=== PATIENT | male | born 1965 | race Caucasian/White ===

== ENCOUNTER → 2017-06-30 | Outpatient (CLI) | payer OTHER ==
--- NOTE | 2017-06-30 10:14 | CT ---
EXAMINATION TYPE: CT chest w con DATE OF EXAM: 06/30/2017 COMPARISON: NONE HISTORY: sarcoidosis CT DLP: 741 mGycm Automated exposure control for dose reduction was used. CONTRAST: CT scan of the chest is performed with IV Contrast, patient injected with 100 mL of Omnipaque 300. FINDINGS: LUNGS: 3 mm on nonspecific pulmonary nodule right upper lobe. Additional 3 mm pulmonary nodule left u pper lobe. No interstitial changes seen. No evidence of focal consolidation or mass. There is no pleu ral effusion or pneumothorax seen. The tracheobronchial tree is patent. MEDIASTINUM: There are no greater than 1 cm hilar or mediastinal lymph nodes. No pericardial effusi on is seen. Thoracic aorta is of normal caliber. The heart is not enlarged. UPPER ABDOMEN: 2 simple cysts are seen within the liver. OTHER: No additional significant abnormality is seen. IMPRESSION: 1. No CT evidence to suggest sarcoidosis at this time. Small subcentimeter lymph nodes within the med iastinum and right hilum. 2. Nonspecific pulmonary nodularity. Consider follow-up study in 6 months.
== END | disposition home or self-care (01) ==
LOC: RADCTMAIN 09:20
PROVIDERS: ATTEND Internal Medicine Critical Care Medicine
DX: R91.8 Other nonspecific abnormal finding of lung field (principal); D86.9 Sarcoidosis, unspecified; R06.02 Shortness of breath
CPT/HCPCS: 85652; 82310; 82164; 71260; Q9967

== ENCOUNTER 2017-11-01 00:54 | Inpatient (IN) | payer OTHER ==
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
[2017-11-01 02:15] LABS: Amphetamine Screen,Urine Not Detected (NotDetected); Barbiturate Screen,Urine Not Detected (NotDetected); Benzodiazepines Screen,Urine Not Detected (NotDetected); Cocaine Screen,Urine Not Detected (NotDetected); Methadone Screen, Urine Not Detected (NotDetected); Opiate Screen,Urine Not Detected (NotDetected); Oxycodone Screen, Urine Detected (NotDetected); Phencyclidine Screen,Urine Not Detected (NotDetected); Tricyclic Antidepressant,Urine Not Detected (NotDetected); Urn Cannabinoid Scrn Not Detected (NotDetected)
[2017-11-01] MEDS ORDERED: MAG HYDROX/AL HYDROX/SIMETH 30 ML CUP PO PRN (15:51)
[2017-11-01] MEDS ORDERED: MAGNESIUM HYDROXIDE 2,400 MG/10 ML CUP PO PRN (15:51)
[2017-11-01] MEDS ORDERED: ZIPRASIDONE 20 MG VIAL IM PRN (15:51)
[2017-11-01] MEDS ORDERED: ALBUTEROL INHALER 60 PUFF/8 GM INHALER INHALATION PRN (15:57)
[2017-11-01] MEDS ORDERED: LORazepam 2 MG/ML INJ IM PRN (16:02)
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
[2017-11-01] MEDS: SYMBICORT 160-4.5 MCG INHALER INHALATION SCH (21:03)
[2017-11-01] MEDS: PRAZOSIN 1 MG CAP PO SCH (22:22)
[2017-11-01] MEDS: OLANZapine 2.5 MG TAB PO SCH (22:22)
--- NOTE | 2017-11-02 00:08 | P.MDCNMH ---
History of Present Illness H&P Date: 11/01/17 Chief Complaint: medical management 51 y old male with history of PTSD, patient presented after he barricaded himself at home police was called and he was brought to the hospital due to acute erratic behavior. Patient denies any history of mental health illness except for PTSD he is a from a [place] war. He otherwise denies any physical complaints at this point or any medical problems. He reports history of osteoarthritis for which she get bilateral total knee arthroplasty. He recently had a left total knee arthroplasty around a week ago. Currently reports that his pain is well controlled. He otherwise denies any suicidal or homicidal ideation . Review of Systems Constitutional: Patient denies fever, denies chills, denies night sweating, denies significant weight changes Eyes: Patient denies visual changes, denies eye pain ENT: Patient denies ear pain, denies rhinorrhea, denies sore throat Cardiovascular: Patient denies chest pain, denies exertional dyspnea, denies peripheral leg edema, denies orthopnea, denies paroxysmal nocturnal dyspnea Respiratory:Patient denies cough, denies wheezing, denies shortness of breath Gastrointestinal: Patient denies diarrhea, denies constipation, denies nausea , denies vomiting, denies abdominal pain Genitourinary: Patient denies dysuria, denies hematuria, denies changes in urinary habits, denies genital lesions Musculoskeletal: Patient denies muscle pain, recently had left knee arthroplasty pain overall is well controlled Psychiatric: Patient patient admits to anxiety and PTSD, denies suicidal ideation Endocrine: Patient denies heat intolerance, denies cold intolerance, denies excessive thirst, denies polyuria Neurological: Patient denies focal neurologic deficits, denies weakness, denies numbness, denies tingling Hem/Lymphatic: Patient denies bleeding tendency, denies bruising, denies swollen lymph glands Allergic/Immun: Patient denies recent allergic reactions Skin: Patient denies rashes, denies pruritis, denies ulcers Past Medical History Past Medical History: Osteoarthritis (OA) History of Any Multi-Drug Resistant Organisms: None Reported Past Surgical History: Appendectomy, Joint Replacement Additional Past Surgical History / Comment(s): Vasectomy Past Psychological History: PTSD Smoking Status: Never smoker Past Alcohol Use History: None Reported Past Drug Use History: None Reported - Past Family History Family Additional Family Medical History / Comment(s): Lung cancer in grandfather Medications and Allergies Home Medications Medication Instructions Recorded Confirmed Type Albuterol Inhaler [Ventolin Hfa 1 puff INHALATION RT-Q2H PRN 11/01/17 11/01/17 History Inhaler] Allopurinol [Zyloprim] 150 mg PO DAILY 11/01/17 11/01/17 History Budesonide-Formot 160-4.5 Mcg 2 puff INHALATION RT-BID 11/01/17 11/01/17 History [Symbicort 160-4.5 Mcg Inhaler] FLUoxetine HCL [PROzac] 20 mg PO DAILY 11/01/17 11/01/17 History Prazosin HCl 2 mg PO HS 11/01/17 11/01/17 History oxyCODONE-APAP 5-325MG [Percocet 1 tab PO Q4H PRN 11/01/17 11/01/17 History 5-325 mg] Allergies Allergy/AdvReac Type Severity Reaction Status Date / Time No Known Allergies Allergy Verified 11/01/17 01:08 Physical Exam Vitals: Vital Signs Temp Pulse Pulse Resp BP BP Pulse Ox 11/01/17 22:26 110 H 20 116/75 11/01/17 07:14 97.4 F L 11/01/17 06:46 80 16 116/72 11/01/17 06:43 97.1 F L 89 18 106/61 96 11/01/17 01:00 97 F L 108 H 18 131/78 96 Constitutional: No acute distress, conversant, pleasant Eyes: Anicteric sclerae, moist conjunctiva, no lid-lag Pupils equal round reactive to light ENMT: NC/AT Oropharynx clear, no erythema, exudates Neck: Supple, FROM, no masses, or JVD No carotid bruits No thyromegaly Lungs: Clear to auscultation Clear to percussion Normal respiratory effort, no accessory muscle use Cardiovascular: Heart regular in rate and rhythm, No murmurs, gallops, or rubs No peripheral edema Abdominal: Soft Nontender, no guarding, rebound or rigidity Abdomen moving with respiration Normoactive bowel sounds No hepatomegaly, No splenomegaly No palpable mass No abdominal wall hernia noted Skin: Normal temperature, tone, texture, turgor No induration No subcutaneous nodules No rash, lesions No ulcers Extremities: Left knee with surgical wound christofer are intact no drainage swelling induration or erythema. There is proximal bruising and ecchymosis over the medial left thigh, intact range of motion of bilateral knees No clubbing Pedal pulses intact and symmetrical Radial pulses intact and symmetrical No calf tenderness Psychiatric: Alert and oriented to person, place and time Slightly pressured speech, paranoid affect poor judgment Neuro Muscles Strength 5/5 in all 4 extremities Sensation to light touch grossly present throughout No focal sensory deficits Lymphatics: no palpable cervical or supraclavicular , or inguinal lymph nodes Cranial Nerve Examination - Cranial Nerves Cranial Nerve II- Optic: Intact Cranial Nerve III- Oculomotor: Intact Cranial Nerve IV- Trochlear: Intact Cranial Nerve V- Trigeminal: Intact Cranial Nerve - Abducens: Intact Cranial Nerve VII- Facial: Intact Cranial Nerve VIII- Auditory: Intact Cranial Nerve IX- Glossopharyngeal: Intact Cranial Nerve X- Vagus: Intact Cranial Nerve XI- Accessory: Intact Cranial Nerve XII- Hypoglossal: Intact Results Labs: Abnormal Lab Results - Last 24 Hours (Table) 11/01/17 Range/Units 01:50 Ur Oxycodone Screen Detected H (NotDetected) Assessment and Plan (1) Psychosis Narrative/Plan: Management per psych Current Visit: Yes Status: Acute Code(s): F29 - UNSP PSYCHOSIS NOT DUE TO A SUBSTANCE OR KNOWN PHYSIOL COND SNOMED Code(s): 00175713 Plan: #Left total knee arthroplasty Pain control Surgical wound is intact with christofer in place Patient not on blood thinners #PTSD Management per psych DVT prophylaxis patient is ambulatory Thank you for allowing us to participate in the care of this patient. We will follow peripherally. Do not hesitate to contact us with questions. Someone can be reached from the [facility] hospitalist group at all hours of the day at [phone].
[2017-11-02 00:27] LABS: Appearance,Urine Clear (Clear); Bilirubin,Urine Negative (Negative); Blood,Urine Negative (Negative); Color,Urine Light Yellow; Glucose,Urine (UA) Negative (Negative); Ketones,Urine Trace (Negative); Leukocyte Esterase,Urine Negative (Negative); Nitrite,Urine Negative (Negative); Protein,Urine Negative (Negative); Specific Gravity,Urine 1.013 (1.001-1.035); Urobilinogen,Urine <2.0 mg/dL (<2.0)
[2017-11-02] MEDS: ACETAMINOPHEN TAB 325 MG TAB PO PRN (01:05)
[2017-11-02] MEDS ORDERED: FLUoxetine HCL 20 MG CAP PO SCH (09:00)
[2017-11-02] MEDS: ALLOPURINOL 300 MG TAB PO SCH (09:12)
[2017-11-02 09:28] LABS: Basophils % (A) 0 %; Eosinophils # (A) 0.1 k/uL (0-0.7); Eosinophils % (A) 1 %; HCT 32.6 % (39.0-53.0); HGB 10.6 gm/dL (13.0-17.5); Lymphocytes % (A) 17 %; MCH 31.5 pg (25.0-35.0); MCHC 32.5 g/dL (31.0-37.0); MCV 96.7 fL (80.0-100.0); Mean Platelet Volume 6.4; Monocytes # (A) 0.4 k/uL (0-1.0); Monocytes % (A) 6 %; Neutrophils # (A) 4.5 k/uL (1.3-7.7); Neutrophils % (A) 74 %; Platelet Count 323 k/uL (150-450); RBC 3.37 m/uL (4.30-5.90); RDW 14.2 % (11.5-15.5); WBC 6.1 k/uL (3.8-10.6)
[2017-11-02] MEDS: SYMBICORT 160-4.5 MCG INHALER INHALATION SCH ×2 (10:00→20:46)
[2017-11-02 10:14] LABS: Albumin 3.5 g/dL (3.5-5.0); Calcium 8.8 mg/dL (8.4-10.2); Potassium 4.3 mmol/L (3.5-5.1); Total Bilirubin 1.4 mg/dL (0.2-1.3); Total Protein 6.3 g/dL (6.3-8.2)
--- NOTE | 2017-11-02 11:55 | P.PN ---
Subjective Progress Note Date: 11/02/17 Principal diagnosis: depression Patient is a 51-year-old male for history of posttraumatic stress disorder and osteoarthritis who is seen in the mental health unit for depression. He underwent an elective left total knee arthroplasty approximately one week ago and I was asked to evaluate him regarding his bruising. Patient seen and examined at bedside. She reports extensive bruising of his left leg. He permits that his pain is worse with movement and he does feel a tightness in his calf. He denies any swelling. He is unsure what he was taking after discharge from the hospital. He denies any chest pain, shortness of breath, lightheadedness, and dizziness. Per nursing has not been getting out of bed and he has not been eating or drinking well. I contacted his pharmacy [facility] who reports that he recently picked up on October 25 prescriptions for Flomax 0.4 mg daily, meloxicam 7.5 mg twice daily, aspirin 81 mg twice daily, and gabapentin 30 mg twice daily. He also received a 1 time dose of Coumadin 10 mg and a Medrol Dosepak earlier this month. Objective - Vital Signs Vital signs: Vital Signs Temp 98.0 F 11/02/17 01:46 Pulse 85 11/02/17 01:46 Resp 16 11/02/17 01:46 BP 134/76 11/02/17 01:46 Pulse Ox 96 11/01/17 06:43 Intake & Output 11/01/17 11/02/17 11/02/17 18:59 06:59 18:59 Output Total 144 Balance -144 Output: Post Void Residual 144 - Exam General: non toxic, no distress, appears at stated age Derm: warm, dry, diffuse ecchymosis on left leg from proximal thigh down to ankle on the medial side, midline left knee incision clean, dry, intact with christofer present Head: atraumatic, normocephalic, symmetric Eyes: EOMI, no lid lag, anicteric sclera Ext: no gross muscle atrophy, no edema, no contractures, negative notices and Homans on the left Neuro: CN II-XI grossly intact, no focal neuro deficits Psych: Alert, oriented, flat affect - Labs CBC & Chem 7: 11/02/17 09:15 11/02/17 09:15 Labs: Abnormal Lab Results - Last 24 Hours (Table) 11/02/17 11/02/17 11/02/17 Range/Units 00:09 09:15 09:15 RBC 3.37 L (4.30-5.90) m/uL Hgb 10.6 L (13.0-17.5) gm/dL Hct 32.6 L (39.0-53.0) % Chloride 110 H (98-107) mmol/L Carbon Dioxide 18 L (22-30) mmol/L BUN 27 H (9-20) mg/dL Creatinine 1.57 H (0.66-1.25) mg/dL Total Bilirubin 1.4 H (0.2-1.3) mg/dL Triglycerides 164 H (<150) mg/dL Cholesterol 241 H (<200) mg/dL LDL Cholesterol, Calc 155 H (0-99) mg/dL TSH 0.181 L (0.465-4.680) mIU/L Urine Ketones Trace H (Negative) Assessment and Plan Assessment: REGINA - likely multifactorial - PVR 144, resume flomax - hold mobic - repeat labs in AM - Encourage oral fluid intake Anemia - anticipate due to acute blood loss - Check FE studies - repeat CBC in AM Ecchymosis left leg - check venous doppler - due tos rugery - start Lovenox if no DVT for post of DVT prophylaxis Dyslipidemia - no risk factors could try dietary modification vs statin - outpatient f/u needed Depression - your psych management Thank you for allowing us to participate in the care of this patient. Will plan on following up on labs. Do not hesitate to contact us with questions. Someone can be reached from the [facility] hospitalist group at all hours of the day at [phone].
[2017-11-02 12:16] LABS: Prothrombin Time 10.1 sec (9.0-12.0)
[2017-11-02] MEDS: TAMSULOSIN 0.4 MG CAP.ER.24H PO SCH (12:27)
--- NOTE | 2017-11-02 15:49 | US ---
EXAMINATION TYPE: US venous doppler duplex LE LT DATE OF EXAM: 11/02/2017 1:09 PM COMPARISON: NONE CLINICAL HISTORY: pain. Knee surgery 10/24/2017. No blood thinners. Pain. Bruising. SIDE PERFORMED: Left TECHNIQUE: The lower extremity deep venous system is examined utilizing real time linear array sonog preeti with graded compression, doppler sonography and color-flow sonography. VESSELS IMAGED: External Iliac Vein (EIV) Common Femoral Vein Deep Femoral Vein Greater Saphenous Vein * Femoral Vein Popliteal Vein Small Saphenous Vein * Proximal Calf Veins (* superficial vessels) Left Leg: Appears negative for DVT IMPRESSION: Grayscale, color doppler, spectral doppler imaging performed of the deep veins of the lo wer extremities. There is normal flow, compressibility, vascular waveforms. No evident deep venous thrombosis at or above the left knee.
--- NOTE | 2017-11-02 15:57 | P.PN ---
Progress Note - Text Progress Note Date: 11/02/17 Interval History: Patient is a 51-year-old male who was admitted after barricading himself in his home and was threatening suicide. I spoke with the patient today and he continues to remain in his room, he has not been eating and states that he does not like to be around people. Patient continued to not be able to discuss with me what occurred that precipitated the event with the police. Patient stated that he was not feeling suicidal at the time and denies current suicidal thoughts. Patient signed a release of information for me to speak with his partner Macie and I contacted Macie. She stated that the patient was doing well until the day of admission and it helped her son with his homework, went in to speak to the patient's 14-year-old daughter and he came out crying. The patient's daughter came out and stated that the patient had been sending a group techs to all of his children which was rambling and had a paranoid quality to it that upset his children. It stated that he needed to do what he was being told to do to prevent his kids from being hurt. When she confronted him with this he said that he needed to post on Facebook that he was going to kill himself or they would kill the kids and he made references to the Taliban. Patient became increasingly agitated and began yelling and she removed the children from the home. She states when she returned to the home he had become increasingly agitated and did not recognize her and wondered how she got in the home. She states that this time he had a gun and did, after her and she left the home and called the police. When I confronted the patient with this information he stated that he has had this other voice in his head that he has been able to control since he returned from [facility] until the last several years. He states that this is a voice that gives him bad thoughts. Patient states that the voice suddenly became uncontrollable and it was telling him all of this information. Patient states that he has never discussed this with his partner. Patient's partner confirm that the patient was on Prozac 80 mg and has been for the last month but she noticed that he was talking in his sleep more and was more restless. She confirm the following surgery he was on gabapentin, laxative Flomax, meloxicam had completed a Medrol Dosepak and was also taking Vistaril 25 mg 4 times a day. He was using oxycodone and that prescription was 1-2 tablets every 4 hours to a max of 12 a day. The patient reported to me that his pain was so severe he was using up to 12 a day on occasion. Patient states that the patient was calling his mother daily complaining of pain but when she was home she did not notice that he was in as much pain as he reported. She did notice that the patient had not been getting out of bed at home and had not been eating. Mental Status: Appearance/Attitude: Patient was again seen in his hospital room as he refuses to come out of the room, he made good eye contact and was cooperative Behavior: Patient did not exhibit any psychomotor agitation or retardation. Speech/Language: Patient's speech was spontaneous and of normal volume and rhythm and he was coherent. Thought Process: Patient was goal-directed and there was no guns of loose associations or flight of ideas. Thought Content: Patient denied auditory or visual hallucinations and did discuss with me that since his return from [place] he has had flashbacks and avoids situations with a lot of people because certain noises will cause him to have flashbacks. He also stated that he has had difficulty controlling this "voice" which causes him to feel angry, and have bad thoughts. He states that this became difficult for him to control and he sought counseling at the [place] and saw a psychiatrist there. He states that after the surgery once he got home he reports that this voice took over and this was what was telling him that he needed to kill himself to protect his children. Suicidal/Homicidal Ideation: Patient denies any current suicidal or homicidal ideation and states that he would never hurt himself or anyone else. Sensorium/Cognition: Patient is alert and oriented to person, place, time and his memory both recent and remote are grossly intact. Mood/Affect: Patient's mood remains depressed and guarded and his affect is appropriate. Insight/Judgment: Patient's insight and judgment are fair. Assessment: Patient has a history of posttraumatic stress disorder with flashbacks, nightmares and and depression. Patient now describes a voice that causes him to have bad thoughts and he states this is what caused him to think about suicide and text this to his children. Patient however was also post surgery and was on opiate pain medication combined with Prozac combined with Vistaril and appears to become increasingly agitated and confused on the night of admission. Patient reports that his sleep has improved slightly with prazosin which decrease the nightmares. He states that the flashbacks are better but because he avoids many situations. States that he takes the children to school and returns home and avoids being out in crowds. Patient was unable to report whether the Prozac was beneficial at the dose of 80 mg, his partner reported that his sleep was more restless and he was talking more in his sleep. Plan: We will discontinue the Prozac as he is at the maximum dose and it does not appear to have benefited him. We will increase his Zyprexa to 5 mg at bedtime, I suspect the patient has PTSD with flashbacks, depression and nightmares and due to surgery, medications became delirious at home on the night of admission. Patient will not be receiving any opioid pain medication. Patient will continue on prazosin 2 mg at bedtime and we'll consider the addition of an antidepressant. Patient continues to be encouraged to eat, drink fluids and to ambulate in his room or the falk.
[2017-11-02 20:04] LABS: Hemoglobin A1C 4.9 % (4.0-6.0)
[2017-11-02] MEDS: PRAZOSIN 1 MG CAP PO SCH (21:12)
[2017-11-02] MEDS: OLANZapine 2.5 MG TAB PO SCH (21:12)
[2017-11-03] MEDS: ALLOPURINOL 300 MG TAB PO SCH (08:58)
[2017-11-03] MEDS: TAMSULOSIN 0.4 MG CAP.ER.24H PO SCH (08:58)
[2017-11-03] MEDS: ENOXAPARIN 30 MG/0.3 ML SYRINGE SQ SCH ×2 (08:59→20:26)
[2017-11-03] MEDS: ACETAMINOPHEN TAB 325 MG TAB PO PRN ×3 (09:00→20:31)
[2017-11-03 09:18] LABS: Anion Gap 13 mmol/L; Blood Urea Nitrogen 27 mg/dL (9-20); Calcium 9.6 mg/dL (8.4-10.2); Carbon Dioxide 18 mmol/L (22-30); Chloride 109 mmol/L (98-107); Glucose 95 mg/dL (74-99); Potassium 4.7 mmol/L (3.5-5.1); Sodium 140 mmol/L (137-145)
[2017-11-03 09:34] LABS: T4, Free (Free Thyroxine) 1.13 ng/dL (0.78-2.19)
[2017-11-03] MEDS: SYMBICORT 160-4.5 MCG INHALER INHALATION SCH ×2 (09:37→21:17)
--- NOTE | 2017-11-03 12:20 | P.PN ---
Progress Note - Text Progress Note Date: 11/03/17 Interval History: Patient is a 51-year-old male who was seen today in his room as he states that he is uncomfortable around people. Patient and I again discussed what had been going on prior to his admission the patient was able to report to me that since [facility] [employer] [facility] that he has been hearing voices that occur to telling him to do bad things, such as hurt himself. He states that he was able to ignore these voices initially. He was also having flashbacks as well as nightmares and 2 years ago began seeing a psychiatrist at the [place], he said he never informed her of his auditory hallucinations. He states that he was placed on Prozac and it did help with the flashbacks as well as the prazosin for his nightmares but the voices continued and he was able to ignore them. Patient states he had knee surgery in April 2017 and after that surgery began using a pint of alcohol a day to stop the voices as they had increased and he was no longer able to ignore them. He states this was what he had been doing until his recent surgery when he discontinued his alcohol and states that when he went home she is having a lot of pain, the voices did return and were telling him that if he didn't kill himself that they would kill his children. He is unaware of what his partner had informed me yesterday of not recognizing him. He denied that he was feeling confused, was having visual hallucinations at home and states that the voices were increasing in intensity since his discharge after surgery. Patient reported that he slept fairly well last evening and reports that the voices are still present but much less intense. Patient states that he ate lunch and dinner yesterday and typically does not eat breakfast. Patient states that he is not leaving his room because being around people causes flashbacks to return. Patient states that his partner did visit last evening but he is still embarrassed and concerned that his family will be ashamed of him and concerns that he believes his partner. Mental Status: Appearance/Attitude: Patient was seen in his room where he is lying in his bed, he makes intermittent eye contact and was cooperative. Behavior: Patient does not display any psychomotor agitation or retardation. Speech/Language: Patient's speech was spontaneous and of normal volume and rhythm and he was coherent. Thought Process: Patient was goal-directed, there is no loose associations or flight of ideas. Thought Content: Patient denied any visual hallucinations but stated he has had and continues to have auditory hallucinations that tell him bad things, recently telling him to kill himself or they would kill his children. Patient states that these have been increasing in intensity since his surgery in April 2017. Patient states he was using alcohol to treat these in the past. Patient reports that he slept well last evening continues to have an occasional nightmare that are not as intense as they were prior to starting medication. Patient reported no current flashbacks. Suicidal/Homicidal Ideation: Patient denies any current suicidal or homicidal ideation. Sensorium/Cognition: Patient is alert and oriented to person, place, time and his recent and remote memory are grossly intact. Mood/Affect: Patient's mood remains guarded and his affect is appropriate Insight/Judgment: Patient's insight and judgment are fair. Assessment: Patient was able to give a more further incomplete history about what has been occurring, he has now reported auditory hallucinations that due to tell him to do things and he states that he's been able to ignore them until his surgery in April 2017. Patient began using alcohol on a daily basis to stop the voices and stopped right before his recent surgery on his other knee. Patient states that he had never informed his psychiatrist at the [place] about this. He states that the flashbacks and nightmares were improved with the Prozac and the voices continued but were controllable. Patient reports that he slept well last evening and no side effects from the Zyprexa but the voices are still present although less intense and frequent. Patient has remained in his room due to stating that he does not like to be around a lot of other people and he reports that he did eat lunch and dinner yesterday and has been drinking fluids. Plan: Patient will continue on prazosin 2 mg at bedtime to target his nightmares and his Zyprexa will be increased to 5 mg nightly to target his psychotic symptoms. His Prozac continues to remain on hold at this time. Patient is continued to be encouraged to eat, drink plenty of fluids and get up and ambulate. Patient is being followed by the medical equipment repair technician. Patient's vital signs are stable.
--- NOTE | 2017-11-03 15:13 | P.PN ---
Subjective Progress Note Date: 11/03/17 (delayed charting seen at 1200) Principal diagnosis: depression Patient is a 51-year-old male for history of posttraumatic stress disorder and osteoarthritis who is seen in the mental health unit for depression. S/P TKA and found to have REGINA likely from dehydration. Patient seen and examined at bedside. His leg is feeling better than yesterday. Still feeling a little stiff. He states he has increased his water consumption and is feeling somewhat better than yesterday. He denies any chest pain or shortness of breath. We discussed that his kidney function is looking better than yesterday. We also discussed his cholesterol levels at length. He states he was fasting when blood work was drawn yesterday. He would be amenable statin therapy. We discussed risks versus benefits of therapy. Patient will be started on Lipitor. Objective - Vital Signs Vital signs: Vital Signs Temp 98.0 F 11/03/17 05:03 Pulse 82 11/03/17 05:03 Resp 16 11/03/17 05:03 BP 136/89 11/03/17 05:03 Pulse Ox 96 11/01/17 06:43 Intake & Output 11/02/17 11/03/17 11/03/17 18:59 06:59 18:59 Output Total 144 Balance -144 Output: Post Void Residual 144 - Exam General: non toxic, no distress, appears at stated age Derm: warm, dry, diffuse ecchymosis on left leg from proximal thigh down to ankle on the medial side, midline left knee incision clean, dry, intact with christofer present Head: atraumatic, normocephalic, symmetric Eyes: EOMI, no lid lag, anicteric sclera Lungs: Clear to auscultation bilaterally, no rhonchi/rales/wheeze, no accessory muscle use Cardiovascular: S1-S2 without murmurs/rubs/gallops, + posterior tibial pulses bilaterally, Ext: no gross muscle atrophy, no edema, no contractures Neuro: CN II-XI grossly intact, no focal neuro deficits Psych: Alert, oriented, flat affect - Labs CBC & Chem 7: 11/02/17 09:15 11/03/17 08:57 Labs: Abnormal Lab Results - Last 24 Hours (Table) 11/03/17 Range/Units 08:57 Chloride 109 H (98-107) mmol/L Carbon Dioxide 18 L (22-30) mmol/L BUN 27 H (9-20) mg/dL Creatinine 1.31 H (0.66-1.25) mg/dL Assessment and Plan Assessment: REGINA - likely multifactorial - flomax - hold mobic - repeat labs 11/05 - Encourage oral fluid intake Anemia - anticipate due to acute blood loss - repeat CBC 11/05 with FE studies Ecchymosis left leg - check venous doppler negative - due to surgery Dyslipidemia - lipitor - outpatient f/u needed Depression - your psych management Thank you for allowing us to participate in the care of this patient. Will plan on following up on labs. Do not hesitate to contact us with questions. Someone can be reached from the [facility] hospitalist group at all hours of the day at [phone].
[2017-11-03] MEDS: PRAZOSIN 1 MG CAP PO SCH (20:26)
[2017-11-03] MEDS: ATORVASTATIN 20 MG TAB PO SCH (20:26)
[2017-11-03] MEDS: OLANZapine 5 MG TAB PO SCH (20:27)
[2017-11-04] MEDS: TAMSULOSIN 0.4 MG CAP.ER.24H PO SCH (08:20)
[2017-11-04] MEDS: ENOXAPARIN 30 MG/0.3 ML SYRINGE SQ SCH ×2 (08:20→20:04)
[2017-11-04] MEDS: ALLOPURINOL 300 MG TAB PO SCH (08:21)
[2017-11-04] MEDS: ACETAMINOPHEN TAB 325 MG TAB PO PRN ×4 (08:21→23:57)
[2017-11-04] MEDS: SYMBICORT 160-4.5 MCG INHALER INHALATION SCH ×2 (09:53→20:36)
--- NOTE | 2017-11-04 12:03 | P.PN ---
Progress Note - Text Progress Note Date: 11/04/17 Interval History: Patient is a 51-year-old male who was seen today and he reported that he is sleeping well without any flashbacks or nightmares. Patient states he is not having flashbacks during the day. He reports that the male voice he has been hearing is not currently present however he continues to have auditory hallucinations but cannot describe them. Patient states that he is eating lunch and dinner and is drinking fluids. He reports that he is not having any suicidal or homicidal ideation. When discussing his ability to return to live with his partner he stated that he feels that that is a possibility but still expresses concerns regarding her ex- and his wish to obtain custody of his son. Patient states that he is up and walking using a wheelchair for support and states that his pain level is at about a 5. Patient reported no complaints of side effects from the medication. Mental Status: Appearance/Attitude: Patient was lying in a hospital bed, made good eye contact and was cooperative. Behavior: Patient did not display any psychomotor agitation or retardation. Speech/Language: Patient speech was spontaneous and he was coherent in his speech is of normal volume and rhythm Thought Process: Patient was goal-directed there is no evidence of loose associations or flight of ideas. Thought Content: Patient reported that he is not hearing the male voice that was telling him to do bad things but still has auditory hallucinations but they are less intense and not command and not the same voice. He denied any visual hallucinations. Patient is much less guarded and no paranoid or delusional ideation was elicited. Patient reported that he feels he can return home with his partner, is concerned that the police may press charges against him for the incident as well as concerns about his partner's ex and his attempts to regain custody of his son. Patient states that he is sleeping well and has not had any nightmares. He reports no episodes of flashbacks and states that he has been eating and drinking. Suicidal/Homicidal Ideation: Patient denied any current suicidal or homicidal ideation. Sensorium/Cognition: Patient is alert and oriented to person, place, time and his recent and remote memory are grossly intact. Mood/Affect: Patient's mood is less guarded and his affect is slightly blunted. Insight/Judgment: Patient's insight and judgment are fair. Assessment: Patient reports that he is sleeping and has slept better than he has in the last 2 years, he has reported no incidents of flashbacks or nightmares. He states that the male voice that he has been hearing that his been telling him to do bad things is not currently present but he still has auditory hallucinations that are less intense and not command and a different voice. Patient denies any suicidal or homicidal ideation at this time he has been eating lunch and dinner and has been exercising in the hallways however he has not been attending groups or activities. Patient is much less guarded and states that he feels he can return back to live with his partner and expressed concerns regarding possible charges as well as concerns about his partner's ex . Patient reported no side effects from the medication and none were observed. Patient reported his mood was stable. Patient was begun on a statin secondary to his elevated lipids. His creatinine yesterday showed improvement. Plan: Patient is much less guarded and reports doing well and will continue on Zyprexa 5 mg at bedtime to target his auditory hallucinations, continue prazosin 2 mg at bedtime to target his nightmares. Patient continues to require hospitalization to further stabilize his psychotic symptoms. Continue to encourage the patient to ambulate, continue to encourage the patient to attend groups and activities. Patient will have labs repeated on November 05.
[2017-11-04] MEDS: LORazepam 1 MG TAB PO PRN ×2 (15:14→23:57)
[2017-11-04] MEDS: PRAZOSIN 1 MG CAP PO SCH (20:01)
[2017-11-04] MEDS: ATORVASTATIN 20 MG TAB PO SCH (20:01)
[2017-11-04] MEDS: OLANZapine 5 MG TAB PO SCH (20:02)
--- NOTE | 2017-11-05 09:03 | P.PN ---
Progress Note - Text Progress Note Date: 11/05/17 Interval History: Patient is a 51-year-old male who was seen in his room, patient reported that he slept well last evening although the patient did receive some Ativan to assist with this last evening. Patient reports that he has not had any flashbacks and reports no nightmares. He reports that he is no longer hearing voices and no longer feeling paranoid. He reports that he had a was in conversation with his partner and daughter last evening. Patient states that he has been up walking as well as eating both lunch and dinner in the dining room. Patient has yet to attend any groups or activities. Patient reported that he is no longer feeling that he will be unwelcome to return home. States that his daughter is not reporting feeling frightened of him or scared and that she understood he was getting help. Patient felt hopeful about the future. He reported not feeling depressed and no suicidal or homicidal thoughts. Patient reported no side effects from the medication. Mental Status: Appearance/Attitude: Patient was lying in a hospital bed, made good eye contact and was cooperative. Behavior: Patient did not display any psychomotor agitation or retardation. Speech/Language: Patient speech is spontaneous and a normal volume and rhythm and he is coherent. Thought Process: Patient is goal-directed and there is no evidence of loose associations or flight of ideas. Thought Content: Patient denied any auditory or visual hallucinations, stating he is no longer hearing "the male voice" that tells him to do bad things. No delusional or paranoid ideation was elicited. Patient reports that he no longer feels he will be unwelcome to return home, spoke with his daughter and partner on the phone last evening and stated it went well. Patient states that he is sleeping and eating well. He states that he has been up ambulating in the hallways. Suicidal/Homicidal Ideation: Patient denied any current suicidal or homicidal ideation. Sensorium/Cognition: Patient is alert and oriented to person, place, and time and his recent and remote memory are grossly intact. Mood/Affect: Patient's mood is pleasant and his affect is appropriate Insight/Judgment: Patient's insight and judgment are fair. Assessment: Patient reports continued improvement, no longer hearing the male voice that has been telling him to do bad things, he appears much less guarded and states that he is eating and sleeping well. Patient has been up ambulating in the hallways and eating his meals in the dining room however has yet to attend any groups or activities. He reports the conversations with family members and his partner have gone well and he is no longer feeling that he will not be welcomed to return home. Patient reports no side effects from the medication. He reports no flashbacks or nightmares. Patient has been drinking water and urinating without difficulty. Plan: Patient will continue on Zyprexa 5 mg at bedtime to target his psychotic symptoms, Prazosin 2 mg at bedtime to target his nightmares. Will not restart Prozac at this time as the patient is not reporting any symptoms of depression. Patient had blood work done this morning and he was encouraged to continue to ambulate and was encouraged to participate in groups and activities. Patient also reported to me that his guns of been confiscated by the police.
[2017-11-05] MEDS: ALLOPURINOL 300 MG TAB PO SCH (09:04)
[2017-11-05] MEDS: TAMSULOSIN 0.4 MG CAP.ER.24H PO SCH (09:05)
[2017-11-05] MEDS: SYMBICORT 160-4.5 MCG INHALER INHALATION SCH ×2 (09:05→19:03)
[2017-11-05] MEDS: ENOXAPARIN 30 MG/0.3 ML SYRINGE SQ SCH (09:06)
[2017-11-05] MEDS: LORazepam 1 MG TAB PO PRN ×2 (09:07→18:22)
[2017-11-05] MEDS: ACETAMINOPHEN TAB 325 MG TAB PO PRN ×4 (09:08→23:03)
[2017-11-05 09:18] LABS: HCT 36.2 % (39.0-53.0); HGB 11.4 gm/dL (13.0-17.5); MCH 30.9 pg (25.0-35.0); MCHC 31.5 g/dL (31.0-37.0); MCV 98.1 fL (80.0-100.0); Mean Platelet Volume 6.6; Platelet Count 361 k/uL (150-450); RBC 3.69 m/uL (4.30-5.90); RDW 13.9 % (11.5-15.5); WBC 8.4 k/uL (3.8-10.6)
[2017-11-05 09:36] LABS: Anion Gap 11 mmol/L; Blood Urea Nitrogen 21 mg/dL (9-20); Calcium 9.5 mg/dL (8.4-10.2); Carbon Dioxide 22 mmol/L (22-30); Chloride 107 mmol/L (98-107); Glucose 112 mg/dL (74-99); Potassium 4.9 mmol/L (3.5-5.1); Sodium 140 mmol/L (137-145)
--- NOTE | 2017-11-05 10:05 | P.PN ---
Subjective Progress Note Date: 11/05/17 Principal diagnosis: depression Patient is a 51-year-old male for history of posttraumatic stress disorder and osteoarthritis who is seen in the mental health unit for depression. S/P TKA and found to have REGINA likely from dehydration. Patient seen and examined at bedside. Leg is hurting a bit today because he walked so much yesterday. Doing better. Eating more. No complaints currently. Objective - Vital Signs Vital signs: Vital Signs Temp 98.1 F 11/05/17 06:45 Pulse 91 11/05/17 06:45 Resp 16 11/05/17 06:45 BP 124/82 11/05/17 06:45 Pulse Ox 96 11/01/17 06:43 - Exam General: non toxic, no distress, appears at stated age Derm: warm, dry, diffuse ecchymosis on left leg from proximal thigh down to ankle on the medial side- starting to deminish, midline left knee incision clean , dry, intact with christofer present Head: atraumatic, normocephalic, symmetric Eyes: EOMI, no lid lag, anicteric sclera Lungs: Clear to auscultation bilaterally, no rhonchi/rales/wheeze, no accessory muscle use Cardiovascular: S1-S2 without murmurs/rubs/gallops, + posterior tibial pulses bilaterally, Ext: no gross muscle atrophy, no edema, no contractures Neuro: CN II-XI grossly intact, no focal neuro deficits Psych: Alert, oriented, flat affect - Labs CBC & Chem 7: 11/05/17 08:52 11/05/17 08:52 Labs: Abnormal Lab Results - Last 24 Hours (Table) 11/05/17 11/05/17 Range/Units 08:52 08:52 RBC 3.69 L (4.30-5.90) m/uL Hgb 11.4 L (13.0-17.5) gm/dL Hct 36.2 L (39.0-53.0) % BUN 21 H (9-20) mg/dL Glucose 112 H (74-99) mg/dL Assessment and Plan Assessment: REGINA, improved - likely multifactorial - flomax - No need to repeat labs - stay off mobic - Encourage oral fluid intake Anemia, improved - anticipate due to acute blood loss Ecchymosis left leg - venous doppler negative - due to surgery Dyslipidemia - lipitor - outpatient f/u needed Depression - your psych management Thank you for allowing us to participate in the care of this patient. Will plan on following peripherally. Do not hesitate to contact us with questions. Someone can be reached from the [facility] hospitalist group at all hours of the day at [phone].
[2017-11-05 17:12] LABS: Iron Saturation 5.76 (15.00-50.00)
[2017-11-05] MEDS: ATORVASTATIN 20 MG TAB PO SCH (21:06)
[2017-11-05] MEDS: PRAZOSIN 1 MG CAP PO SCH (21:06)
[2017-11-05] MEDS: OLANZapine 5 MG TAB PO SCH (21:07)
[2017-11-06] MEDS: ALLOPURINOL 300 MG TAB PO SCH (08:46)
[2017-11-06] MEDS: TAMSULOSIN 0.4 MG CAP.ER.24H PO SCH (08:46)
[2017-11-06] MEDS: ASPIRIN 325 MG TAB PO SCH (08:46)
[2017-11-06] MEDS: SYMBICORT 160-4.5 MCG INHALER INHALATION SCH ×2 (09:56→19:11)
--- NOTE | 2017-11-06 12:22 | P.PN ---
Progress Note - Text Progress Note Date: 11/06/17 Interval History: Patient is a 51-year-old male who was seen today, he was sleeping in his room stating that his legs had been bothering him last evening and he did not sleep well. Patient did receive on some Ativan when necessary last night. Patient states that he is not hearing the bad voice or any other voices and states he has not had any flashbacks or nightmares. He reports that he was up walking and has been eating lunch and dinner. Patient states that he has not had any suicidal thoughts or homicidal thoughts. He has not been attending any groups. Mental Status: Appearance/Attitude: Patient was lying in a hospital bed, made good eye contact and was cooperative Behavior: Patient did not display any psychomotor agitation or retardation. Speech/Language: Patient's speech was spontaneous and of normal volume and rhythm and he was coherent. Thought Process: Patient was goal-directed and there is no evidence of loose associations or flight of ideas. Thought Content: Patient denied any auditory or visual hallucinations, stating he is not hearing the bad voice and also no paranoid or delusional ideation were elicited. Patient states that he has not had any flashbacks or nightmares but did not sleep well last evening because of the pain in his knee. He states that he is eating well and has been up ambulating in the hallways. He states that he continues to not attend groups and activities. He does not like to be in groups of people. Suicidal/Homicidal Ideation: Patient denies any current suicidal or homicidal ideation Sensorium/Cognition: Patient is alert and oriented to person, place, time and his recent and remote memory are grossly intact. Mood/Affect: Patient's mood is pleasant and his affect is appropriate Insight/Judgment: Patient's insight and judgment are fair Assessment: Patient continues to improve stating that he is not hearing "the bad voice", no paranoid or delusional ideation is elicited and he reports note for about flashbacks or nightmares. Patient does remain in his room, does ambulate in the hallways and eat in the dining room but he is not attending groups and activities. Patient reports no side effects from the medication and his sleep was less restful last evening due to pain in his knee. Patient's laboratory studies show an improvement in his creatinine back to normal levels. Patient is reporting no side effects from the medication and is not reporting feeling depressed off the Prozac. Plan: Patient will continue on Zyprexa 5 mg at bedtime and prazosin 2 mg at bedtime, patient is continued to be encouraged to ambulate, and drink plenty of fluids. Patient was instructed to stay off the meloxicam by the medical physics professor. Patient is encouraged to attend groups and activities. We will discuss discharge plans early this week.
[2017-11-06] MEDS: LORazepam 1 MG TAB PO PRN ×3 (13:11→22:07)
[2017-11-06] MEDS: ACETAMINOPHEN TAB 325 MG TAB PO PRN ×3 (13:11→22:07)
--- NOTE | 2017-11-06 15:48 | P.PN ---
Subjective Progress Note Date: 11/06/17 Principal diagnosis: depression Patient is a 51-year-old male for history of posttraumatic stress disorder and osteoarthritis who is seen in the mental health unit for depression. S/P TKA and found to have REGINA likely from dehydration. Christofer were to be removed tomorrow by home health care nurse. Patient seen and examined at bedside. Leg is feeling good today, but stapes are becoming itchy. He has no other complaints currently. Objective - Vital Signs Vital signs: Vital Signs Temp 98.4 F 11/06/17 01:40 Pulse 89 11/06/17 01:40 Resp 16 11/06/17 01:40 BP 127/77 11/06/17 01:40 Pulse Ox 96 11/01/17 06:43 - Exam General: non toxic, no distress, appears at stated age Derm: warm, dry, fading diffuse ecchymosis on left leg from proximal thigh down to ankle on the medial side midline left knee incision clean, dry, intact with christofer present Head: atraumatic, normocephalic, symmetric Eyes: EOMI, no lid lag, anicteric sclera Lungs: Clear to auscultation bilaterally, no rhonchi/rales/wheeze, no accessory muscle use Cardiovascular: S1-S2 without murmurs/rubs/gallops, + posterior tibial pulses bilaterally, Ext: no gross muscle atrophy, no edema, no contractures Neuro: CN II-XI grossly intact, no focal neuro deficits Psych: Alert, oriented, flat affect - Labs CBC & Chem 7: 11/05/17 08:52 11/05/17 08:52 Labs: Abnormal Lab Results - Last 24 Hours (Table) 11/05/17 Range/Units 08:52 Iron 17 L (65-175) ug/dL Iron Saturation 5.76 L (15.00-50.00) Assessment and Plan Assessment: s/p TKA - continue with PT and wheelchair to walk behind - removed all christofer from left leg today, incision approximated without significant erythema or warmth, no drainage. - keep covered today and can remove dressing tonight REGINA, improved - likely multifactorial - flomax - No need to repeat labs - stay off mobic - Encourage oral fluid intake Anemia, improved - anticipate due to acute blood loss Ecchymosis left leg - venous doppler negative - due to surgery Dyslipidemia - lipitor - outpatient f/u needed Depression - your psych management Thank you for allowing us to participate in the care of this patient. Will plan on following peripherally. Do not hesitate to contact us with questions. Someone can be reached from the [facility] hospitalist group at all hours of the day at [phone].
[2017-11-06] MEDS: PRAZOSIN 1 MG CAP PO SCH (22:10)
[2017-11-06] MEDS: OLANZapine 5 MG TAB PO SCH (22:10)
[2017-11-06] MEDS: ATORVASTATIN 20 MG TAB PO SCH (22:10)
[2017-11-07] MEDS: ACETAMINOPHEN TAB 325 MG TAB PO PRN ×2 (02:25→08:23)
[2017-11-07 02:33] VITALS: RESP 16
[2017-11-07] MEDS: ALLOPURINOL 300 MG TAB PO SCH (08:20)
[2017-11-07] MEDS: ASPIRIN 325 MG TAB PO SCH (08:20)
[2017-11-07] MEDS: TAMSULOSIN 0.4 MG CAP.ER.24H PO SCH (08:20)
[2017-11-07] MEDS: LORazepam 1 MG TAB PO PRN ×2 (08:23→19:57)
[2017-11-07] MEDS: SYMBICORT 160-4.5 MCG INHALER INHALATION SCH ×2 (11:20→22:39)
--- NOTE | 2017-11-07 13:17 | P.PN ---
Progress Note - Text Progress Note Date: 11/07/17 Interval History: Patient is a 51-year-old male who was seen today and he came to my office. Patient states that he is feeling much better and continues to sleep well. He reports that he is no longer hearing the bad voice nor has he had any nightmares or flashbacks. Patient states he is not feeling depressed nor paranoid. He states that he has been attending some groups and they have gone well. Patient states that he is up all walking using a wheelchair for support and states that he has been doing well with that, reports the pain is tolerable. Patient states since having the christofer removed yesterday he is no longer having any itches at the incision site. Mental Status: Appearance/Attitude: Patient is appropriately dressed, using a walker to ambulate and was cooperative Behavior: Patient displayed no psychomotor agitation or retardation. Speech/Language: Patient was spontaneous speech was of normal volume and rhythm and he was coherent Thought Process: Patient was goal-directed there is no evidence of loose associations or flight of ideas. Thought Content: Patient denied any auditory or visual hallucinations and no delusions or paranoid ideation were elicited. Patient states that he is sleeping and eating well. He states he has not had any nightmares or flashbacks and has been attending groups. Patient states that he has no urges to use alcohol Suicidal/Homicidal Ideation: Patient denies any current suicidal or homicidal ideation Sensorium/Cognition: Patient was alert and oriented to person, place, time and his recent and remote memory are grossly intact. Mood/Affect: Patient's mood was pleasant and his affect was appropriate Insight/Judgment: Patient's insight and judgment are intact Assessment: Patient reports that he has been doing much better and has been attending groups and activities and reports no flashbacks or nightmares. He states he is no longer hearing the bad voice and is feeling calmer. Patient states his interactions with his partner have gone well and he is eager to return home. Patient discussed his alcohol use to control the voices in the past and states he has had no urges to drink. Patient reports no side effects from the medication. Plan: Patient will continue on Zyprexa 5 mg at bedtime and prazosin 2 mg at bedtime. Patient continues to ambulate in the hallway, has been attending groups and activities and was encouraged to continue to do the. Patient and I discussed discharge tomorrow and he was comfortable with that as well as he has a follow-up appointment with his orthopedic surgeon them. Discussed in team meeting confirming whether all the guns were removed from the house by the police prior to his discharge. [facility] but he also requested other referrals for psychiatric follow-up.
[2017-11-07] MEDS: PRAZOSIN 1 MG CAP PO SCH (19:56)
[2017-11-07] MEDS: ATORVASTATIN 20 MG TAB PO SCH (19:56)
[2017-11-07] MEDS: OLANZapine 5 MG TAB PO SCH (19:58)
[2017-11-08] MEDS: ACETAMINOPHEN TAB 325 MG TAB PO PRN ×2 (00:21→08:11)
[2017-11-08 02:13] VITALS: BP 119/83; PULSE 95; TEMP 97
[2017-11-08] MEDS: LORazepam 1 MG TAB PO PRN (03:05)
[2017-11-08] MEDS: TAMSULOSIN 0.4 MG CAP.ER.24H PO SCH (08:10)
[2017-11-08] MEDS: ALLOPURINOL 300 MG TAB PO SCH (08:10)
[2017-11-08] MEDS: ASPIRIN 325 MG TAB PO SCH (08:10)
[2017-11-08] MEDS: SYMBICORT 160-4.5 MCG INHALER INHALATION SCH (09:15)
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
== END 2017-11-08 11:33 | disposition home or self-care (01) | DRG 882 ==
LOC: EC 00:54 → 3MHU 05:30
PROVIDERS: ADMIT Psychiatry & Neurology Psychiatry; ATTEND Psychiatry & Neurology Psychiatry
DX: F43.10 Post-traumatic stress disorder, unspecified (principal); N17.9 Acute kidney failure, unspecified; R45.851 Suicidal ideations; D64.9 Anemia, unspecified; F29 Unspecified psychosis not due to a substance or known physiological condition; F32.9 Major depressive disorder, single episode, unspecified; Z96.652 Presence of left artificial knee joint; G47.30 Sleep apnea, unspecified; I10 Essential (primary) hypertension; E78.5 Hyperlipidemia, unspecified; E86.0 Dehydration; M19.90 Unspecified osteoarthritis, unspecified site; Z80.1 Family history of malignant neoplasm of trachea, bronchus and lung; Z79.82 Long term (current) use of aspirin; Z79.01 Long term (current) use of anticoagulants; Z79.899 Other long term (current) drug therapy; Z79.891 Long term (current) use of opiate analgesic
CPT/HCPCS: 80048; 80053; 80061; 80306; 81003; 82075; 82728; 83036; 83540; 83550; 84439; 84443; 85025; 85027; 85610; 99285

== ENCOUNTER → 2020-02-28 | Outpatient (CLI) | payer OTHER ==
--- NOTE | 2020-02-28 17:05 | CONS ---
CONSULTATION DATE OF SERVICE: 02/28/2020 A 54-year-old gentleman who has been evaluated in the [facility] for excessive daytime sleepiness and obstructive sleep apnea-hypopnea syndrome. HISTORY OF PRESENT ILLNESS/SLEEP-WAKE EVALUATION: Patient had been diagnosed with obstructive sleep apnea in the past, was treated with CPAP, but continued to feel sleepiness during the day. His sleep schedule is different. He is on detention now. Sometimes there is a problem for him to fall asleep. No TV in bedroom, although usually sleeps on the stomach position. He snores, has episodes of stopped breathing during the sleep. Positive history of sleepwalking. He wakes up from sleep more than 4 times with nocturia. Positive history of hypnagogic hallucinations, nightmares. In the morning, patient wakes up tired, falling asleep during the day, has problems with memory, concentration, anxiety. [place] Sleepiness Scale significantly increased to 17. Patient takes naps 2 times a day, in the morning and afternoon, usually does not feel refreshed after naps, does not have dreams during naps. PAST MEDICAL HISTORY: Positive for posttraumatic stress disorder, episodes of anxiety. PAST SURGICAL HISTORY: Bilateral knee replacement, appendectomy. MEDICATIONS: Buspirone. The patient takes two other medication, patient does not remember exact spelling of these medications. SOCIAL HISTORY: Negative for smoking or using alcohol. FAMILY HISTORY: Positive for arthritis for his mother. PHYSICAL EXAM: A 54-year-old gentleman without distress. BP 107/75, HR 80, RR 16, height 5, 10, weight 254, BMI 36.4, temperature 98.1, oxygen saturation at room air 94%. OROPHARYNX: Low position of soft palate, wide neck 17 inches in circumference. ABDOMEN: Obese. NECK: Supple, no JVD. Thyroid is not palpable. LUNGS: Clear to percussion and to auscultation. Good air exchange. No wheezing or rhonchi. HEART: S1, S2 regular. No murmurs, gallops, or rubs. EXTREMITIES: No clubbing or cyanosis. PRESSURE SUPERVISOR: Awake, alert, and oriented X3. Cranial nerves 2 to 7 intact. There is no fasciculation or atrophy. noted. No focal deficits observed. IMPRESSION: 1. Snoring. Low position of soft palate. A wide neck. History of obstructive sleep apnea in the past, obstructive sleep apnea-hypopnea syndrome. 2. Significant excessive daytime sleepiness with West[place] Sleepiness Scale of 17. Dictate necessity to include hypersomnia to differential diagnosis. 3. Obesity, body mass index 36.4. 4. History of PTSD. 5. History of episodes of anxiety. 6. Status post bilateral knee replacement. 7. Status post appendectomy. PLAN: 1. Polysomnography for evaluation of patient's breathing during sleep. 2. CPAP/BiPAP titration if sleep study confirms obstructive sleep apnea-hypopnea syndrome. 3. Preferable position during sleep on the side. 4. No driving if patient feels any sleepiness. 5. Multiple sleep latency test should be proceeded if patient will continue to feel sleepiness while on treatment for obstructive sleep apnea-hypopnea syndrome. 6. I will see patient for follow up visit to explain results of testing and following plan. Thank you very much for referring this patient for consultation. Sincerely, Gustabo Rizvi MD, PhD, FAASM Diplomat of [employer] [place] [employer] [facility] MMODL / TABITHAN: [id number] / MTDD
== END | disposition home or self-care (01) ==
LOC: SLEEP 13:05
PROVIDERS: ATTEND Internal Medicine
DX: R06.83 Snoring (principal); E66.9 Obesity, unspecified; Z68.36 Body mass index [BMI] 36.0-36.9, adult; Z86.59 Personal history of other mental and behavioral disorders; Z87.09 Personal history of other diseases of the respiratory system; Z96.653 Presence of artificial knee joint, bilateral; Z90.89 Acquired absence of other organs; Z79.899 Other long term (current) drug therapy
CPT/HCPCS: 99211

== ENCOUNTER → 2020-06-24 | Outpatient (CLI) | payer OTHER ==
--- NOTE | 2020-06-24 13:37 | US ---
EXAMINATION TYPE: US kidneys/renal and bladder DATE OF EXAM: 06/24/2020 COMPARISON: Chest CT 2017 CLINICAL HISTORY: R94.4 RENAL IMPAIRMENT. EXAM MEASUREMENTS: Right Kidney: 11.8 x 5.2 x 4.9 cm Left Kidney: 10.8 x 6.1 x 5.7 cm Post Void Residual Volume: 39.3 mL Right Kidney: no hydronephrosis or masses seen; crescent shaped small peripheral hypoechoic areas see n mid extracapsular to kidneys is suggestive of sonographic "sweat sign" indicating renal failure and is noted bilateral kidneys. Left Kidney: No hydronephrosis or masses seen Bladder: wnl Bilateral Jets seen: only small left ureteral jet seen was seen within 3 minute observation Normal Post Void Residual: yes Urinary bladder is satisfactorily distended. Bilateral distal ureter jets not identified. After voidi ng small amount of residual urine, calculated volume approximately 40 cc. Bilateral kidneys show no c oncerning solid or cystic mass. No hydronephrosis. Cortical medullary differentiation fairly well daniel ntained. IMPRESSION: No hydronephrosis noted bilaterally.
== END | disposition home or self-care (01) ==
LOC: RADUSWWP 12:14
DX: R94.4 Abnormal results of kidney function studies (principal); Z88.8 Allergy status to other drugs, medicaments and biological substances
CPT/HCPCS: 76770

== ENCOUNTER → 2021-06-04 | Outpatient (CLI) | payer OTHER ==
--- NOTE | 2021-06-05 05:50 | MR ---
EXAMINATION TYPE: MR brain wo/w con DATE OF EXAM: 06/04/2021 COMPARISON: None HISTORY: Memory impairment. CONTRAST: Standard multiplanar, multisequence MRI departmental protocol utilizing 12 mL intravenous Gadavist ga dolinium contrast. Is minimal atrophy appropriate for age. There is no mass effect nor midline shift. There is no sign o f intracranial hemorrhage. Corpus callosum appears intact. Diffusion images show no evidence of an ac della infarct. The nelson-white matter structures have fairly normal signal pattern. There is no evidence of cerebral edema. Brainstem is intact. There is no evidence of a posterior fossa mass. There is no evidence of orbital mass. Sella turcica appears normal. There is no evidence of mastoiditis. Contrast images show no pathologic enhancement. There is normal enhancement of the venous sinuses. Op tic chiasm appears normal. IMPRESSION: MR scan of the brain appears fairly normal for age.
== END | disposition home or self-care (01) ==
LOC: RADMRIMAIN 15:42
PROVIDERS: ATTEND Physician Assistant Medical
DX: I69.811 Memory deficit following other cerebrovascular disease (principal)
CPT/HCPCS: 70553; A9585

== ENCOUNTER → 2022-06-01 | Outpatient (CLI) | payer OTHER ==
--- NOTE | 2022-06-01 15:17 | US ---
EXAMINATION TYPE: US thyroid st tissue head/neck DATE OF EXAM: 06/01/2022 COMPARISON: NONE CLINICAL HISTORY: E04.1 SINGLE THYROID NODULE. GLAND SIZE: Right Lobe: 4.6 x 1.5 x 2.4 cm Overall Parenchyma: heterogenous Left Lobe: 4.6 x 1.4 x 1.7 cm Overall Parenchyma: heterogeneous Isthmus Thickness: 0.3 cm NODULES RIGHT: # of nodules measured on right: 1 1. 1.8 X 1.5 x 1.6 cm, lower lateral, mixed cystic and solid, hypoechoic nodule, which is wider jillian n tall, with smooth margins, without echogenic foci. Prior size: no previous LEFT: # of nodules measured on left: 0 ISTHMUS: # of nodules measured in the isthmus: 0 Bilateral neck scanned, no evidence of lymphadenopathy. IMPRESSION: TR 3 lesion right thyroid lobe. Mildly Suspicious: FNA if ? 2.5 cm; Follow if ? 1.5 cm at 1, 3, and 5 y
--- NOTE | 2022-06-01 15:18 | CT ---
EXAMINATION TYPE: CT chest wo con DATE OF EXAM: 06/01/2022 COMPARISON: Prior chest CT report June 30, 2017. Direct comparison cannot be performed due to PACS downtime. HISTORY: Solitary pulmonary nodule CT DLP: 543.20 mGycm. Automated Exposure Control for Dose Reduction was Utilized. TECHNIQUE: CT scan of the thorax is performed without IV contrast. FINDINGS: LUNGS: There is a calcified 3 to 4 mm lingular nodule or benign granuloma coronal image 51. There i s noncalcified 4 mm right middle lobe nodule axial image 34. There is subpleural 5 mm noncalcified le ft lower lobe nodule axial image 43. Mild to moderate linear scarring right middle lobe axial image 3 8 and mild linear scarring in the lingula. No definitive greater than 5 mm noncalcified pulmonary nod ules or masses. There is no pleural effusion or pneumothorax seen. The tracheobronchial tree is prather nt. MEDIASTINUM: Lack of IV contrast is noted to limit evaluation for mediastinal and especially hilar ad enopathy. There are prominent and enlarged thoracic lymph nodes. For reference, there is 2.0 x 1.4 cm enlarged prevascular lymph node on axial image 23. Small to tiny pericardial effusion is seen. No ca rdiomegaly. Focal coronary artery calcification axial image 28 OTHER: Subcentimeter low dense lesion right hepatic lobe axial image 71. IMPRESSION: No significant greater than 5 mm pulmonary nodules or masses. Thoracic adenopathy is pres ent which is not noted on prior report. Further workup and follow-up advised. Consider PET/CT follow- up.
== END | disposition home or self-care (01) ==
LOC: RADCTMAIN 14:16
DX: E04.1 Nontoxic single thyroid nodule (principal); R91.1 Solitary pulmonary nodule
CPT/HCPCS: 71250; 76536

== ENCOUNTER → 2022-07-30 | Outpatient (CLI) | payer OTHER ==
--- NOTE | 2022-07-31 10:20 | PE ---
EXAMINATION TYPE: PET CT fusion skull to thigh DATE OF EXAM: 07/30/2022 CLINICAL INDICATION:Male, 56 years old with history of SPN R91.1; TECHNIQUE: Following the intravenous administration of 11.5 mCi of F-18 FDG, whole body images are performed from the skull base to the midthigh. Images are reviewed on the computer in the coronal, a xial, and sagittal planes. Reconstructed rotating images are created on independent workstation and reviewed on the computer. A non-contrast CT is performed in conjunction with the PET scan. Glucose level 124 mg/dL COMPARISON: CT 06/01/2022 and 06/30/2017, PET/CT None, FINDINGS: Mediastinal SUV mean is 1.7. Hepatic parenchyma SUV mean is 2.8. SKULL BASE AND NECK: No suspicious FDG activity. CHEST, MEDIASTINUM, AND HILAR REGION: No suspicious FDG activity. Scattered mediastinal prominent and mildly enlarged lymph nodes. Examples include: * AP window 14 mm Max SUV 1.8. * Right low paratracheal 11 mm Max SUV 1.9. * 10L lymph node 9 mm Max SUV 2.3. ABDOMEN AND PELVIS: No suspicious FDG activity. OSSEOUS STRUCTURES: No suspicious FDG activity. OTHER CT: Atherosclerosis of the arterial vasculature including the coronary arteries. The heart is m ildly enlarged for size. There is fluid in the pericardial recesses. Right thyroid nodule which is no t FDG avid. Left fat filled inguinal hernia. IMPRESSION: Mediastinal lymphadenopathy some of which is mildly enlarged with mildly increased FDG activity. Find ings could represent granulomatous changes in the setting of sarcoidosis. Nothing to suggest malignan cy at this time. [facility], 07/30/2022 9:58 AM, [id number], [id number], PET CT fusion skull to thigh
== END | disposition home or self-care (01) ==
LOC: RADPETMAIN 08:03
PROVIDERS: ATTEND Physician Assistant Medical
DX: R91.1 Solitary pulmonary nodule (principal); R59.0 Localized enlarged lymph nodes
CPT/HCPCS: 78815; A9552

== ENCOUNTER 2022-08-20 06:40 | Day surgery (SDC) | payer OTHER ==
[2022-08-19 08:49] VITALS: BMI 37.3
[~2022-08-20 06:40] MED LIST: LACTATED RINGERS 1,000 ML IV SCH
[2022-08-20 07:05] VITALS: TEMP 97
[2022-08-20] MEDS ORDERED: fentaNYL (PF) 50 MCG/ML 2 ML AMP ONE (08:05)
[2022-08-20] MEDS ORDERED: LIDOCAINE 2% INJ 20 MG/ML (2 ML VIAL) ONE (08:05)
[2022-08-20] MEDS ORDERED: PROPOFOL 10 MG/ML 20 ML VIAL IV ONE (08:05)
[2022-08-20] MEDS ORDERED: MIDAZOLAM 2 MG/2 ML VIAL ONE (08:05)
--- NOTE | 2022-08-20 08:33 | P.PCN ---
Date of Procedure: 08/20/22 Procedure(s) Performed: Brief history: Patient is a pleasant 56-year-old white male scheduled for an elective upper endoscopy as well as colonoscopy as a part of evaluation of into main dysphagia to solids and screening for colon cancer Procedure performed: Esophagogastroduodenoscopy with biopsy Colonoscopy Preoperative diagnosis: Intermittent dysphagia to solids Screening for colon cancer Anesthesia: [facility] Procedure: After informed consent was obtained from the patient was brought into the endoscopy unit and IV sedation was administered by anesthesia under continuous monitoring. Initially upper endoscopy was done. The Olympus GF 160 video endoscope was inserted inserted into the mouth and esophagus intubated without any difficulty and was gradually advanced into the stomach and duodenum and carefully examined. The bulb and second part of the duodenum appeared normal. The scope was then withdrawn into the stomach adequately insufflated with air and upon careful examination the antrum and mild antral gastritis and biopsies were done from this area. body, cardia and fundus appeared normal. The scope was then withdrawn into the esophagus. The GE junction was located at 40 cm to the incisors. Small sliding type hiatal hernia noted. There were linear erosions and ulcerations in the distal esophagus consistent with LA grade D reflux esophagitis. Rest of the esophagus appeared normal. Patient tolerated the procedure well. At this time the patient continued to remain sedation. Initial digital rectal examination was normal. Olympus CF 160 video colonoscope was then inserted into the rectum and gradually advanced to the cecum without any difficulty. Careful examination was performed as the scope was gradually being withdrawn. The prep was fair.. The cecum, ascending colon, transverse colon, descending colon, sigmoid colon and rectum appeared normal. Retroflexion was performed in the rectum and no lesions were noted. Patient tolerated the procedure well. Impression: 1. Upper endoscopy revealed linear erosions and ulcerations in the distal esophagus consistent with LA grade D reflux esophagitis, small hiatal hernia and mild antral gastritis 2. Colonoscopy was within normal limits with no evidence of colorectal neoplasia Recommendations: Findings of this examination were discussed with the patient as well as his family. He was advised to follow with the biopsy results. He'll be started on omeprazole 20 mg twice daily and was briefly educated about antireflux measures. Recommend repeat screening colonoscopy in 10 years.
[2022-08-20 08:56] VITALS: BP 152/94; PULSE 72; RESP 16
== END 2022-08-20 09:29 | disposition home or self-care (01) ==
LOC: ORWHC2ENDO 06:40
PROVIDERS: ATTEND Internal Medicine Gastroenterology
DX: Z12.11 Encounter for screening for malignant neoplasm of colon (principal); K29.50 Unspecified chronic gastritis without bleeding; K22.10 Ulcer of esophagus without bleeding; K44.9 Diaphragmatic hernia without obstruction or gangrene; I10 Essential (primary) hypertension; E78.5 Hyperlipidemia, unspecified; J45.909 Unspecified asthma, uncomplicated; D86.9 Sarcoidosis, unspecified; Z79.899 Other long term (current) drug therapy; Z98.890 Other specified postprocedural states
CPT/HCPCS: 45378; 88305; 43239; J2250; J3010; J2704; J2001

== ENCOUNTER → 2023-05-18 | Outpatient (CLI) | payer OTHER ==
--- NOTE | 2023-05-19 09:19 | NM ---
EXAMINATION TYPE: NM DatScan Brain SPECT DATE OF EXAM: 05/18/2023 COMPARISON: NONE HISTORY: Tremor TECHNIQUE: 10 drops of Lugol's solution was administered 1 hour prior to injection as a thyroid bloc cm agent. After the administration of 4.5 mCi I-123 Ioflupane DaTscan. Images obtained [address] injection. SPECT images of the brain were acquired with axial and coronal reconstructions. FINDINGS: The axial SPECT images demonstrate normal background activity. Accounting for head tilt, t here appears to be slight asymmetrically blunted comma-shaped appearance of the left corpus striatum. IMPRESSION: Slightly blunted striatal activity on the left may indicate early changes of idiopathic P arkinson's disease or Parkinsonian syndrome.
== END | disposition home or self-care (01) ==
LOC: RADNMMAIN 10:43
PROVIDERS: ATTEND Physician Assistant
DX: R42 Dizziness and giddiness (principal); R25.1 Tremor, unspecified
CPT/HCPCS: 78803; A9584

== ENCOUNTER → 2023-12-06 | Outpatient (CLI) | payer OTHER ==
--- NOTE | 2023-12-06 12:23 | FL ---
EXAMINATION TYPE: FL barium swallow DATE OF EXAM: 12/06/2023 12:16 PM COMPARISON: 07/30/2022 CLINICAL INDICATION:Male, 58 years old with history of R13.19 OTHER DYSPHAGIA; PHH, TECHNIQUE: The procedure was explained and patient history elicited. All patient questions were ans wered prior to start of procedure. Multiple spot fluoroscopic images of the esophagus were obtained a fter the oral ingestion of effervescent crystals and liquid barium as the contrast agent. Fluoroscopic time: 34 sec Fluoroscopic images: 0 Radiographs taken: 90 DAP: 1886 cGycm2 FINDINGS: The esophagus demonstrates normal primary and secondary peristalsis. Few tertiary contractions were i dentified. The esophageal mucosa is smooth without evidence of focal stricture, ulceration, or abnorm al outpouching. No gastroesophageal reflux disease was identified. Aspiration was identified on the third swallow attempts. IMPRESSION: Free flow of contrast from the pharynx to the stomach with mild esophageal dysmotility. Aspiration on the third attempt to swallow. Consider speech pathology evaluation.
== END | disposition home or self-care (01) ==
LOC: RADUSWWP 10:46
PROVIDERS: ATTEND Family Medicine
DX: K22.4 Dyskinesia of esophagus (principal)
CPT/HCPCS: 74220

== ENCOUNTER → 2024-07-26 | Outpatient (CLI) | payer OTHER ==
--- NOTE | 2024-07-27 23:04 | US ---
EXAMINATION TYPE: US thyroid st tissue head/neck DATE OF EXAM: 07/26/2024 COMPARISON: NONE CLINICAL INDICATION: Male, 58 years old with history of E04.1 THYROID NODULE; TECHNIQUE: Grayscale and color Doppler imaging of the thyroid gland. FINDINGS: GLAND SIZE: Right Lobe: 4.8 x 1.9 x 2.6 cm Overall Parenchyma: homogeneous Left Lobe: 4.6 x 1.4 x 1.6 cm Overall Parenchyma: homogeneous Isthmus Thickness: 0.3 cm NODULES RIGHT: # of nodules measured on right: 1 1. 2.5 X 1.6 x 1.8 cm, mid lateral, mixed cystic and solid, isoechoic nodule, which is wider than t all, with ill-defined margins, with echogenic foci. TR 3 LEFT: # of nodules measured on left: 0 ISTHMUS: # of nodules measured in the isthmus: 0 Bilateral neck scanned, no evidence of lymphadenopathy. IMPRESSION: Mildly suspicious nodule right lobe thyroid. Fine-needle aspiration can be performed. 2017 ACR TI-RADS LEVEL: TR-RADS 3 - Mildly Suspicious: Follow if > 1.5 cm, FNA if > 2.5 cm *Highest TI-RADS level nodule reported [email or web address] [facility], Workstation: DESTINYMARIA DOLORESYESSICARODDY, 07/27/2024 11:02 PM
== END | disposition home or self-care (01) ==
LOC: RADUSWWP 09:05
PROVIDERS: ATTEND Family Medicine
DX: E04.1 Nontoxic single thyroid nodule (principal)
CPT/HCPCS: 76536

== ENCOUNTER 2024-10-02 12:41 | Day surgery (SDC) | payer OTHER ==
[2024-10-02] MEDS: ALPRAZolam 0.5 MG TAB PO STA (13:23)
[2024-10-02 13:53] VITALS: TEMP 98.7
[2024-10-02 14:01] VITALS: RESP 18
[2024-10-02 15:20] VITALS: BP 168/92; PULSE 84
--- NOTE | 2024-10-03 07:46 | US ---
CLINICAL INDICATION: Male 58 years old with a history of E04.1 NONTOXIC SINGLE THYROID NODULE. COMPARISON: Ultrasound thyroid study from July 26, 2024. PROCEDURE: ULTRASOUND-GUIDED THYROID RightNODULE FNA Pre-procedure diagnosis: Right thyroid TR 3 nodule. Post-procedure diagnosis: Same. Anesthesia: Locally anesthetized with 1% lidocaine. Physician: Exam was performed by myself. EBL: Minimal. Specimens: 5 FNA aspirates given to IR nurse Condition: Stable. Unanticipated events: None. Procedure Description: Informed consent was obtained. Discussion included possibility of nondiagnostic results. Patient was brought to the ultrasound procedure suite and placed supine upon the table with neck extended. Multip le grayscale images and real-time imaging was obtained of the thyroid gland. The thyroid gland was sc anned. Persistent right thyroid mixed but predominantly solid roughly 2.5 cm nodule. The skin over the procedure site was marked, prepped, and draped in usual sterile fashion. Then a ti meout was then performed. The site was then locally anesthetized with 1% lidocaine. Under direct ult rasound guidance the needle was then localized to the center of this lesion. A total of 5 25-gauge FN A samples were obtained from the lesion. Samples were sent to the lab for further evaluation. After the samples were obtained, hemostasis achieved at the site by manual compression. A sterile Ba nd-Aid was placed. Patient tolerated the procedure well with no immediate complication. Patient was subsequently discharged home. IMPRESSION: Successful ultrasound guided FNA with samples sent to pathology for further analysis. [facility], , 10/03/2024 7:43 AM
== END 2024-10-02 15:15 | disposition home or self-care (01) ==
LOC: RADPROMAIN 12:41
PROVIDERS: ATTEND Family Medicine
DX: E04.1 Nontoxic single thyroid nodule (principal)
CPT/HCPCS: 10005; 88173; 88305

== ENCOUNTER → 2024-11-06 | Outpatient (CLI) | payer OTHER ==
--- NOTE | 2024-11-11 13:56 | CT ---
EXAMINATION TYPE: CT chest w con DATE OF EXAM: 11/06/2024 9:04 AM COMPARISON: 06/01/2022 CLINICAL INDICATION: Male, 58 years old with history of D86.9 SARCOIDOSIS, UNSPECIFIED, hx of sarcoid osis. pt recently sick x few months. TECHNIQUE: Axial images were obtained at 5 mm thick sections. Reconstructed images are reviewed on [employer] computer in the coronal plane. Contrast used:100ml mL of Isovue 300 with IV Contrast, (none if empty) Oral contrast used: (none if empty) CT DLP: 611.0 mGycm, Automated exposure control for dose reduction was used. FINDINGS: Portion of the thyroid visualized is normal. No suspicious lung nodules or focal infiltrates are present. Multiple small shotty lymph nodes are present in the mediastinum. There is an enlarged left hilar lym ph node measuring 1.5 cm. Series 3 image 26. Ascending aorta diameter at the level of the main pulmonary artery is 3.8 cm. The main pulmonary art kimberly diameter at the bifurcation is 2.[address] sections are obtained through the upper abdomen. Abdomen is essentially unremarkable. IMPRESSION: 1. Multiple small shotty lymph nodes present through the mediastinum. An enlarged left hilar lymph no de may be present. Findings appear stable from comparison [facility], , 11/11/2024 1:54 PM
== END | disposition home or self-care (01) ==
LOC: RADCTMAIN 08:21
PROVIDERS: ATTEND Internal Medicine Critical Care Medicine
DX: D86.9 Sarcoidosis, unspecified (principal); R59.0 Localized enlarged lymph nodes
CPT/HCPCS: 71260; Q9967

== ENCOUNTER → 2025-03-25 | Outpatient (CLI) | payer OTHER ==
--- NOTE | 2025-03-25 13:38 | NM ---
INDICATION: Patient age:Male; 59 years old; Reason for study: T84.032D LOOSENING OF INTERNAL RIGHT KNEE PROSTHET; [facility]. COMPARISON: Right knee radiograph 03/21/2025, 02/28/2024. PROCEDURE: A 3 phase bone scan limited to the both knees was obtained following the IV administration of 24.3 mCi of [id number]. FINDINGS: No focal increased radiotracer activity to the right knee on blood flow an angiographic blo od pool imaging. Photopenic defects in both knees from prior arthroplasty demonstrated. Symmetrical p eriprosthetic uptake to both knees on delayed imaging. IMPRESSION: No definitive evidence for hardware loosening or infection. [facility], , 03/25/2025 1:36 PM
== END | disposition home or self-care (01) ==
LOC: RADNMMAIN 07:23
PROVIDERS: ATTEND Orthopaedic Surgery
DX: T84.032D Mechanical loosening of internal right knee prosthetic joint, subsequent encounter (principal)
CPT/HCPCS: 78315; A9503